=== PATIENT | male | born 1960 ===

== ENCOUNTER 2019-01-25 07:31 | Outpatient (CLI) | payer OTHER ==
[~2019-01-25] VITALS: Ht 152.4 cm; Wt 95.3 kg
== END 2019-01-25 07:45 | disposition home or self-care (01) ==
LOC: OFIC 805 07:31
DX: H61.23 Impacted cerumen, bilateral (principal); H60.8X1 Other otitis externa, right ear

== ENCOUNTER 2019-02-08 08:50 | Outpatient (CLI) | payer OTHER ==
[~2019-02-08] VITALS: Ht 152.4 cm; Wt 95.3 kg
== END 2019-02-08 09:10 | disposition home or self-care (01) ==
LOC: OFIC 805 08:50
DX: H60.8X1 Other otitis externa, right ear (principal)